=== PATIENT | female | born 1935 | race Caucasian/White ===

== ENCOUNTER 2021-01-19 18:14 | Emergency (ER) | payer MEDICARE, OTHER ==
[~2021-01-19] VITALS: Ht 167.6 cm; Wt 64.9 kg
[~2021-01-19 18:14] MED LIST: CARV3.122 PO; CYAN1TAB43 PO; FURO40TA5 PO; LISI20TA30 PO; SPIR25TA6 PO
--- NOTE | 2021-01-19 19:02 | NUR ---
BLOOD SPECIMEN COLECTED AND SENT TO THE LAB
[2021-01-19 19:16] LABS: BASOPHILS # (AUTO) 0.1 K/uL (0.0-0.2); BASOPHILS % (AUTO) 1.3 % (0.0-2.0); EOSINOPHILS % (AUTO) 7.5 % (0.0-6.0); HEMATOCRIT 37 % (33-45); HEMOGLOBIN 12.2 g/dL (11.5-14.8); LYMPHOCYTES # (AUTO) 2.2 K/uL (0.8-4.8); LYMPHOCYTES % (AUTO) 38.6 % (20.0-44.0); MEAN CORPUSCULAR HGB CONC 33 g/dl (31.0-36.0); MEAN CORPUSCULAR VOLUME 94 fL (82-100); MONOCYTES # (AUTO) 0.9 K/uL (0.1-1.30); MONOCYTES % (AUTO) 14.9 % (2.0-12.0); NEUTROPHILS # (AUTO) 2.2 K/uL (1.8-8.9); NEUTROPHILS % (AUTO) 37.7 % (43.0-81.0); PLATELET COUNT (AUTO) 158 K/uL (150-450); RED BLOOD CELL COUNT(AUTO) 3.94 MIL/uL (4.0-5.2); WHITE BLOOD COUNT (AUTO) 5.8 K/uL (4.3-11.0)
[2021-01-19 19:23] LABS: CALCIUM, SERUM 8.6 mg/dL (8.5-10.1); CARBON DIOXIDE 30 mmol/L (21-32); CHLORIDE 107 mmol/L (98-107); GLUCOSE 109 mg/dL (74-106); POTASSIUM 4.2 mmol/L (3.5-5.1); SODIUM SERUM 141 mmol/L (136-145); UREA NITROGEN, BLOOD 26 mg/dL (7-18)
[2021-01-19 19:28] LABS: ALANINE AMINOTRANSFERASE 30 U/L (12-78); ALKALINE PHOSPHATASE 65 U/L (46-116); ASPARTATE AMINOTRANSFERASE 18 U/L (15-37); BILIRUBIN,DIRECT 0.1 mg/dL (0.0-0.2); BILIRUBIN,TOTAL 0.2 mg/dL (0.2-1.0); LIPASE 283 U/L (73-393); TOTAL PROTEIN, SERUM 7.7 g/dL (6.4-8.2)
[2021-01-19] MEDS ORDERED: DIVA125T32 PO (20:36)
[2021-01-19] MEDS ORDERED: ASPI-1169 PO (20:36)
[2021-01-19] MEDS ORDERED: MIRT-121 PO (20:36)
[2021-01-19] MEDS ORDERED: ATOR20TA PO (20:36)
[2021-01-19] MEDS ORDERED: FAMO20TA8 PO (20:36)
--- NOTE | 2021-01-19 20:37 | NUR ---
called lab for covid swabs
--- NOTE | 2021-01-19 20:47 | NUR ---
covid swabs sent to lab
[2021-01-19 21:04] LABS: BILIRUBIN,URINE NEGATIVE (NEGATIVE); COLOR,URINE YELLOW (YELLOW); NITRITE, URINE POSITIVE (NEGATIVE); PROTEIN,URINE NEGATIVE (NEGATIVE); UGLUCOSE NEGATIVE (NEGATIVE); UROBILINOGEN,URINE 0.2 EU/dL (0.2)
[2021-01-19 21:11] LABS: LEUKOCYTE ESTERASE ,URINE 1+ (NEGATIVE); RBC,URINE 0-2 /HPF (0-2)
[2021-01-19 21:12] LABS: BACTERIA,URINE 4+ /HPF (None Seen); SQUAMOUS EPITHELIAL CELL,UR Few /HPF (None Seen)
[2021-01-19] MEDS ORDERED: FUROSEMIDE 20 MG/2 ML VIAL ONE (21:28)
[2021-01-19] MEDS ORDERED: FUROSEMIDE 20 MG/2 ML VIAL IV ONE (21:30)
[2021-01-19] MEDS ORDERED: CEFTRIAXONE 1GM BAG (ER ONLY) 1 GM/50 ML PIGGYBACK IV ONE (22:00)
[2021-01-19] MEDS ORDERED: CEFTRIAXONE 1GM BAG (ER ONLY) 50 ML IV ONE (22:01)
--- NOTE | 2021-01-19 22:07 | NUR ---
[facility] ETA 60-60 MINUTES.
[2021-01-19] MEDS ORDERED: CEFT1FRO2 IV (22:14)
--- NOTE | 2021-01-19 22:37 | NUR ---
REPORT GIVEN TO SUDHA. INFORMED TO LEAVE IV LINE IN FOR IV ABX AT FACILITY.
--- NOTE | 2021-01-19 23:11 | NUR ---
PICKED UP BY [facility], ALL VSS STABLE AT TIME OF PICKUP.
[2021-01-19 23:26] VITALS: BP 152/79
== END 2021-01-19 22:45 ==
LOC: ER 18:20
DX: N39.0 Urinary tract infection, site not specified (principal); I11.0 Hypertensive heart disease with heart failure; I50.9 Heart failure, unspecified; I25.10 Atherosclerotic heart disease of native coronary artery without angina pectoris; Z86.73 Personal history of transient ischemic attack (TIA), and cerebral infarction without residual deficits; G31.84 Mild cognitive impairment of uncertain or unknown etiology; M19.90 Unspecified osteoarthritis, unspecified site; Z79.82 Long term (current) use of aspirin; Z79.899 Other long term (current) drug therapy; G93.89 Other specified disorders of brain
CPT/HCPCS: 36415; 70450; 71045; 80048; 80076; 81001; 83690; 83880; 84484; 85025; 87077; 87081; 87086; 87186; 87426; 93005; 96365; 96375; 99285; J0696; J1940; C9803; U0003